=== PATIENT | female | born 1990 | race Caucasian/White ===

== ENCOUNTER 2016-12-14 14:48 | Inpatient (IN) | payer BC ==
[~2016-12-14] VITALS: Ht 160 cm; Wt 56.7 kg
[2016-12-14] MEDS ORDERED: OXYTOCIN IV ONE (15:15)
[2016-12-14] MEDS ORDERED: NS IV ONE (15:15)
[2016-12-14] MEDS ORDERED: IV NORMAL SALINE 1000 ML BAG IV ONE (15:15)
[2016-12-14] MEDS ORDERED: OXYTOCIN 10 UNIT/ML VIAL IV ONE (15:15)
--- NOTE | 2016-12-14 15:46 | NUR ---
Patient is resting comfortably on gurney while using her cellphone, pending results and disposition @this time, calm, verbalized mild abdominal cramping with small amount of vaginal bleeding seen.
[2016-12-14 15:51] LABS: BASOPHILS % (AUTO) 0.3 % (0.0-2.0); EOSINOPHILS % (AUTO) 0.3 % (0.0-7.0); HEMATOCRIT 28.8 % (37.0-47.0); HEMOGLOBIN 9.7 g/dL (12.0-16.0); LYMPHOCYTES % (AUTO) 7.9 % (20.5-51.5); MEAN CORPUSCULAR HEMOGLOBIN 29.3 uug (27.0-31.0); MEAN CORPUSCULAR HGB CONC 34 g/dL (32.0-37.0); MEAN CORPUSCULAR VOLUME 86.9 fL (81.0-99.0); MONOCYTES # (AUTO) 0.6 K/uL (0.1-1.30); MONOCYTES % (AUTO) 4.8 % (0.0-11.0); NEUTROPHILS # (AUTO) 10.8 K/uL (1.8-8.9); NEUTROPHILS % (AUTO) 86.7 % (38.5-71.5); PLATELET COUNT (AUTO) 217 K/uL (150-450); RED BLOOD CELL COUNT(AUTO) 3.31 MIL/uL (4.20-5.40); RED CELL DISTRIBUTION WIDTH 12.1 % (11.5-14.5); WHITE BLOOD COUNT (AUTO) 12.4 K/uL (4.0-11.2)
[2016-12-14 15:57] LABS: CALCIUM 7.7 mg/dL (8.5-10.1); CARBON DIOXIDE 25 mmol/L (21-32); CHLORIDE 107 mmol/L (98-107); GFR > 130 mL/min (>60); GLUCOSE 94 mg/dL (74-106); POTASSIUM 3.5 mmol/L (3.5-5.1); SODIUM SERUM 139 mmol/L (136-145); UREA NITROGEN, BLOOD 8 mg/dL (7-18)
[2016-12-14 15:59] LABS: CREATININE 0.5 mg/dL (0.6-1.3)
[2016-12-14 16:06] LABS: ALANINE AMINOTRANSFERASE 10 U/L (14-59); ALBUMIN 2.7 g/dL (3.4-5.0); ALKALINE PHOSPHATASE 42 U/L (50-136); ASPARTATE AMINOTRANSFERASE 18 U/L (15-37); BILIRUBIN,DIRECT 0.2 mg/dL (0.0-0.2); BILIRUBIN,TOTAL 0.6 mg/dL (0.2-1.0); PREGNANCY TEST SERUM QUAN 496 miul/L (0-6); TOTAL PROTEIN, SERUM 5.4 g/dL (6.4-8.2)
--- NOTE | 2016-12-14 16:41 | NUR ---
Dr Smith is at bedside.
--- NOTE | 2016-12-14 17:01 | NUR ---
Pending registration/admission papers at this time
--- NOTE | 2016-12-14 17:10 | NUR ---
Laurie-anal care provided. Moderate amount of blood seen on the absorbent chucks. Patient voided 250ml bloody urine.
--- NOTE | 2016-12-14 17:30 | NUR ---
RECEIVED FROM ER. V/S STABLE. DENIES PAIN, DENIES NAUSEA. DR. MENDOZA NOTIFIED. 1800 DR MENDOZA IN TO SEE PT. 1830 DR. FISHMAN CALLED AND WAS GIVEN AN UPDATE.
[2016-12-14 17:40] VITALS: BP 98/62
[2016-12-14 18:54] LABS: BASOPHILS % (AUTO) 0.4 % (0.0-2.0); EOSINOPHILS # (AUTO) 0.1 K/uL (0.0-0.7); EOSINOPHILS % (AUTO) 0.9 % (0.0-7.0); HEMATOCRIT 27.8 % (37.0-47.0); HEMOGLOBIN 9.4 g/dL (12.0-16.0); LYMPHOCYTES # (AUTO) 1.2 K/uL (0.8-4.8); LYMPHOCYTES % (AUTO) 10.7 % (20.5-51.5); MEAN CORPUSCULAR HEMOGLOBIN 29.4 uug (27.0-31.0); MEAN CORPUSCULAR HGB CONC 34 g/dL (32.0-37.0); MEAN CORPUSCULAR VOLUME 87.4 fL (81.0-99.0); MONOCYTES # (AUTO) 0.4 K/uL (0.1-1.30); MONOCYTES % (AUTO) 3.3 % (0.0-11.0); NEUTROPHILS # (AUTO) 9.4 K/uL (1.8-8.9); NEUTROPHILS % (AUTO) 84.7 % (38.5-71.5); PLATELET COUNT (AUTO) 216 K/uL (150-450); RED BLOOD CELL COUNT(AUTO) 3.18 MIL/uL (4.20-5.40); RED CELL DISTRIBUTION WIDTH 11.8 % (11.5-14.5); WHITE BLOOD COUNT (AUTO) 11.1 K/uL (4.0-11.2)
[2016-12-14] MEDS ORDERED: ONDANSETRON 4 MG/2 ML VIAL IV PRN (19:15)
[2016-12-14] MEDS ORDERED: ACETAMINOPHEN 325 MG TABLET PO PRN (19:15)
[2016-12-14] MEDS ORDERED: MORPHINE SULFATE 2 MG/1 ML DISP.SYRIN IV PRN (19:15)
[2016-12-14] MEDS ORDERED: ACETAMINOPHEN 650 MG SUPP.RECT RC PRN (19:15)
--- NOTE | 2016-12-14 20:17 | NUR ---
Patient in bed awake & alert no SOB denies chest. Sinus rhythm on the monitor. Patient stated she just used the bedpan. Blood urine noted. Patient denies abdominal pain at this time. Vital signs are WNL.
[2016-12-14 20:52] VITALS: BP 111/64
[2016-12-15 00:18] VITALS: BP 98/66
[2016-12-15 05:11] VITALS: BP 101/67
--- NOTE | 2016-12-15 06:00 | NUR ---
Patient slept well, resting in bed, no respiratory distress no SOB. Patient voiding, minimal vaginal bleeding noted, consumed 3 kimberley pads. Denies abdominal pain at this time. Patient remains afebrile. Spouse at bedside. Call light within reach. Will continue to monitor.
[2016-12-15] MEDS ORDERED: PANTOPRAZOLE SODIUM 40 MG VIAL IV SCH (07:00)
--- NOTE | 2016-12-15 07:00 | NUR ---
PATIENT RECEIVED IN ROOM RESTING WITH EYES CLOSED IN NO ACUTE DISTRESS. 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 RESPIRATIONS EVEN AND UNLABORED. AT BEDSIDE.
[2016-12-15 07:45] LABS: ALBUMIN 2.4 g/dL (3.4-5.0); BILIRUBIN,TOTAL 0.5 mg/dL (0.2-1.0); CALCIUM 7.6 mg/dL (8.5-10.1); CREATININE 0.6 mg/dL (0.6-1.3); MAGNESIUM 1.7 mg/dL (1.8-2.4); PHOSPHOROUS 3.1 mg/dL (2.5-4.9); POTASSIUM 3.6 mmol/L (3.5-5.1); TOTAL PROTEIN, SERUM 4.8 g/dL (6.4-8.2)
[2016-12-15 07:52] LABS: BASOPHILS # (AUTO) 0.1 K/uL (0.0-0.2); BASOPHILS % (AUTO) 0.9 % (0.0-2.0); EOSINOPHILS # (AUTO) 0.2 K/uL (0.0-0.7); EOSINOPHILS % (AUTO) 3.3 % (0.0-7.0); HEMATOCRIT 24.4 % (37.0-47.0); HEMOGLOBIN 8.4 g/dL (12.0-16.0); LYMPHOCYTES # (AUTO) 2.2 K/uL (0.8-4.8); LYMPHOCYTES % (AUTO) 38.8 % (20.5-51.5); MEAN CORPUSCULAR HEMOGLOBIN 30.3 uug (27.0-31.0); MEAN CORPUSCULAR HGB CONC 34 g/dL (32.0-37.0); MEAN CORPUSCULAR VOLUME 88.3 fL (81.0-99.0); MONOCYTES # (AUTO) 0.4 K/uL (0.1-1.30); MONOCYTES % (AUTO) 6.6 % (0.0-11.0); NEUTROPHILS # (AUTO) 2.9 K/uL (1.8-8.9); NEUTROPHILS % (AUTO) 50.4 % (38.5-71.5); PLATELET COUNT (AUTO) 212 K/uL (150-450); RED BLOOD CELL COUNT(AUTO) 2.77 MIL/uL (4.20-5.40); RED CELL DISTRIBUTION WIDTH 12.1 % (11.5-14.5); WHITE BLOOD COUNT (AUTO) 5.8 K/uL (4.0-11.2)
--- NOTE | 2016-12-15 07:59 | NUR ---
H/H RESULTS REPORTED TO DR. EISENBERG.
[2016-12-15] MEDS ORDERED: MAGNESIUM OXIDE 400 MG TABLET PO ONE (08:30)
--- NOTE | 2016-12-15 10:02 | NUR ---
PATIENT REPORTED NOT HAVING ANY BLOOD ON PAD OR URINE AT THIS TIME.
[2016-12-15 11:40] VITALS: BP 110/69
--- NOTE | 2016-12-15 11:58 | NUR ---
PATIENT SEEN BY DR. EISENBERG. SEE NEW ORDERS.
[2016-12-15 12:02] LABS: HEMATOCRIT 30.2 % (37.0-47.0)
[2016-12-15] MEDS ORDERED: NO HOME MEDS (12:07)
[2016-12-15] MEDS ORDERED: Acetaminophen PO (12:49)
--- NOTE | 2016-12-15 13:53 | NUR ---
DISCHARGING PATIENT HOME IN A STABLE CONDITION. VSS. DENIED PAIN. IV REMOVED, PRESSURE APPLIED AND HEMOSTASIS ACHIEVED. DISCHARGE INSTRUCTIONS PROVIDED. LIST OF BELONGINGS SIGNED AND ALL WAS TAKEN. PATIENT LEAVING VIA PRIVATE CAR ACCOMPANIED BY , SINDHU.
== END 2016-12-15 14:00 | disposition home or self-care (01) | DRG 779 ==
LOC: ER 14:52 → TELE 17:00 → MED 12-15 12:15
PROVIDERS: ADMIT Internal Medicine; ATTEND Internal Medicine
DX: O03.1 Delayed or excessive hemorrhage following incomplete spontaneous abortion (principal); E43 Unspecified severe protein-calorie malnutrition; D62 Acute posthemorrhagic anemia; Z3A.12 12 weeks gestation of pregnancy; D72.829 Elevated white blood cell count, unspecified; E88.09 Other disorders of plasma-protein metabolism, not elsewhere classified; E83.42 Hypomagnesemia; Z68.22 Body mass index [BMI] 22.0-22.9, adult
CPT/HCPCS: 36415; 70030-TC; 83550; 83735; 84100; 85018; 85025; 85730; 86850; 86870; 86900; 86901; A4663; C9113; J2590; J7030